=== PATIENT | male | born 1930 | race Caucasian/White ===

== ENCOUNTER 2016-06-08 14:27 | Emergency (ER) | payer MEDICARE, OTHER ==
[~2016-06-08 14:27] MED LIST: ALL DAY ALLERGY10 M3 PO; ASPIR 8181 MG PO; ATORVASTATIN CA80 MG PO; CATAPRES 0.1MG0.1 MG PO; ELIQUIS5 MG PO; LASIX20 MG PO; LEVOXYL150 MCG PO; NIFEDIPINE ER90 MG PO; OMEPRAZOLE20 MG PO; TOPROL XL25 MG PO; VITAMIN B-1000 MCG/M SQ; VITAMIN D1000 UNIT PO; VITAMIN D31000 UNIT PO
[2016-06-08 16:59] LABS: HEMOGLOBIN 14.8 gm/dl (14.0-17.5); RED BLOOD COUNT 4.97 M/UL (4.20-5.50)
== END 2016-06-08 18:48 | disposition home or self-care (01) ==
LOC: ER1 14:27
PROVIDERS: Physician Assistant Medical
DX: J06.9 Acute upper respiratory infection, unspecified (principal); J45.909 Unspecified asthma, uncomplicated; I10 Essential (primary) hypertension; E78.00 Pure hypercholesterolemia, unspecified; Z79.82 Long term (current) use of aspirin; Z79.899 Other long term (current) drug therapy
CPT/HCPCS: 36415; 71020; 80053; 83880; 85025; 87081; 87880; 99283

== ENCOUNTER 2020-10-30 10:39 | Emergency (ER) | payer MEDICARE, OTHER ==
[~2020-10-30 10:39] MED LIST changes: +ASPIRIN EC81 MG PO; -ELIQUIS5 MG PO; +ISORDIL TAB 1010 MG PO; +LEVOFLOXACIN250 MG PO; +LOPRESSOR 25 MG25 MG PO; +NIFEDIPINE ER90 M1 PO; +PRADAXA 75 MG C75 MG PO; +TYLENOL W/CODEIN1 E1 PO; -VITAMIN D1000 UNIT PO; +VITAMIN D32000 UNI1 PO
[2020-10-30 12:40] LABS: HEMOGLOBIN 13.1 gm/dl (14.0-17.5); RED BLOOD COUNT 4.42 M/UL (4.20-5.50); WHITE BLOOD COUNT 8.3 K/UL (4.5-11.0)
[2020-10-30] MEDS ORDERED: ZOFRAN4 MG PO (13:48)
== END 2020-10-30 14:10 | disposition home or self-care (01) ==
LOC: ER1 10:39
PROVIDERS: Physician Assistant
DX: R35.0 Frequency of micturition (principal); I12.9 Hypertensive chronic kidney disease with stage 1 through stage 4 chronic kidney disease, or unspecified chronic kidney disease; N18.9 Chronic kidney disease, unspecified; Z85.46 Personal history of malignant neoplasm of prostate; Z95.0 Presence of cardiac pacemaker; F17.220 Nicotine dependence, chewing tobacco, uncomplicated
CPT/HCPCS: 51798; 80053; 81001; 85025; 99283